=== PATIENT | male | born 1990 | race Caucasian/White ===

== ENCOUNTER 2019-05-30 16:27 | Emergency (ER) | payer SELFPAY ==
[~2019-05-30] VITALS: Ht 167.6 cm; Wt 87.3 kg
[2019-05-30 16:33] VITALS: BP 154/103
[2019-05-30] MEDS ORDERED: KETOROLAC 30 MG/ML VIAL IM ONE (17:10)
[2019-05-30 18:03] VITALS: BP 132/95
== END 2019-05-30 19:03 | disposition home or self-care (01) ==
LOC: MED 16:27
DX: S39.012A Strain of muscle, fascia and tendon of lower back, initial encounter (principal); X58.XXXA Exposure to other specified factors, initial encounter; Y93.89 Activity, other specified; Y92.89 Other specified places as the place of occurrence of the external cause; Y99.8 Other external cause status
CPT/HCPCS: 72100; 81002; 96372; 99283; J1885

== ENCOUNTER 2019-10-19 04:54 | Emergency (ER) | payer MEDICAID ==
[~2019-10-19] VITALS: Ht 175.3 cm; Wt 79.4 kg
--- NOTE | 2019-10-19 04:55 | NUR ---
BIBA BLS TO ER BED 9
[2019-10-19 04:59] VITALS: BP 111/82
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
--- NOTE | 2019-10-19 05:12 | NUR ---
DR ACHARYA AT BEDSIDE
[2019-10-19] MEDS ORDERED: IBUPROFEN 800 MG TAB PO ONE (05:15)
--- NOTE | 2019-10-19 05:41 | NUR ---
XR AT BEDSIDE.
[2019-10-19 06:20] VITALS: BP 111/82
== END 2019-10-19 06:20 | disposition home or self-care (01) ==
LOC: MED 04:54
DX: S80.212A Abrasion, left knee, initial encounter (principal); S80.211A Abrasion, right knee, initial encounter; V49.69XA Unspecified car occupant injured in collision with other motor vehicles in traffic accident, initial encounter; Y93.89 Activity, other specified; Y92.89 Other specified places as the place of occurrence of the external cause; Y99.8 Other external cause status
CPT/HCPCS: 73564; 99283; Q0092

== ENCOUNTER 2020-06-20 01:10 | Emergency (ER) | payer MEDICAID ==
[~2020-06-20] VITALS: Ht 167.6 cm; Wt 81.6 kg
[2020-06-20 01:18] VITALS: BP 153/108
--- NOTE | 2020-06-20 01:21 | NUR ---
PT TAKEN TO BED 9
--- NOTE | 2020-06-20 01:40 | NUR ---
29 YO M BIB SELF WITH C/C OF 8/10 BODY ACHES AND TIGHTNESS IN HIS CHEST THAT IS NONRAD, AND PRODUCTIVE COUGH (GREEN MUSCUS) SINCE WEDNESDAY. DENIED TAKING MEDICATION FOR PAIN RELIEF. PT IS CLAMMY AND APPEARS TO BE SWEATING. LUNG SOUNDS CLEAR BILAT. PT PRESENTS WITH A HR AT 144 AND AFEBRILE. DENIES N/V/D AND CONTACT WITH COVID POS PTS. PT STATES HE NEEDS A NEG COVID TEST TO RETURN BACK TO WORK. DENIES TAKING COVID TEST IN PAST. 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 BED LOCKED IN LOWEST POSITION. SIDE RAIL X1. HX: DENIED RX: DENIED NKA
--- NOTE | 2020-06-20 01:45 | NUR ---
Dr. Felder examining patient.
--- NOTE | 2020-06-20 01:48 | NUR ---
LABS, MARGARET SWAB, INFLUENZA SWAB TAKEN TO LAB.
[2020-06-20] MEDS ORDERED: ACETAMINOPHEN EXTRA STRENGTH 500 MG TAB PO ONE (01:55)
[2020-06-20] MEDS ORDERED: NACL 0.9% 1,000 ML IV ONE ×2 (01:55→02:40)
--- NOTE | 2020-06-20 01:56 | NUR ---
X-Ray at bedside.
[2020-06-20 01:58] LABS: BASOPHILS # (AUTO) 0.1 K/uL (0.00-0.22); BASOPHILS % (AUTO) 0.8 % (0.0-2.0); EOSINOPHILS # (AUTO) 0.1 K/uL (0-0.4); EOSINOPHILS % (AUTO) 1.3 % (0.0-4.0); HEMATOCRIT 45.5 % (36-52); HEMOGLOBIN 15.5 g/dL (12.0-18.0); LYMPHOCYTES # (AUTO) 1.4 K/uL (2.0-11.5); LYMPHOCYTES % (AUTO) 17.4 % (20.5-51.1); MEAN CORPUSCULAR HEMOGLOBIN 30 pg (27-31); MEAN CORPUSCULAR HGB CONC 34 g/dL (33-37); MEAN CORPUSCULAR VOLUME 87.2 fL (80-94); MONOCYTES # (AUTO) 0.5 K/uL (0.8-1.0); MONOCYTES % (AUTO) 5.8 % (1.7-9.3); NEUTROPHILS # (AUTO) 6.2 K/uL (1.8-7.7); NEUTROPHILS % (AUTO) 74.7 % (42.2-75.2); PLATELET COUNT (AUTO) 305 K/uL (140-450); RED BLOOD CELL COUNT(AUTO) 5.22 MIL/uL (4.20-6.10); RED CELL DISTRIBUTION WIDTH 13.1 % (11.6-13.7); WHITE BLOOD COUNT (AUTO) 8.3 K/uL (4.8-10.8)
--- NOTE | 2020-06-20 02:09 | NUR ---
EMT AT BEDSIDE DOING EKG.
[2020-06-20 02:21] LABS: ALBUMIN 3.6 g/dL (3.4-5.0); ANION GAP 10.2 (8-16); CARBON DIOXIDE 29.3 mmol/L (21-32); CREATININE 0.9 mg/dL (0.6-1.3); POTASSIUM 4.5 mmol/L (3.5-5.1); THYROID STIMULATING HORMONE 2.29 uIU/mL (0.34-3.74); TOTAL BILIRUBIN 0.2 mg/dL (0.0-1.0)
--- NOTE | 2020-06-20 02:25 | NUR ---
PT ENCOURAGED TO URINATE FOR UA.
--- NOTE | 2020-06-20 02:31 | NUR ---
UA DROPPED OFF AT LAB.
--- NOTE | 2020-06-20 02:45 | NUR ---
PT RESTING IN BED. EQUAL RISE AND FALL OF CHEST WALL. BED LOCKED IN LOWEST POSITION. 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 SIDE RAILS X1.
[2020-06-20 02:55] LABS: BARBITURATE, URINE NEGATIVE ng/ml (NEG <=200); BENZODIAZEPINE, URINE NEGATIVE ng/mL (NEG <=200); CANNABINOID, URINE NEGATIVE ng/mL (NEG <=50); COCAINE, URINE POSITIVE ng/mL (NEG <=300); OPIATE, URINE NEGATIVE ng/mL (NEG <=2000); PHENCYCLIDINE SCREEN,URINE NEGATIVE ng/mL (NEG <=25)
[2020-06-20 03:30] VITALS: BP 142/102
--- NOTE | 2020-06-20 03:30 | NUR ---
Patient discharged with v/s stable. Written and verbal after care instructions given and explained. Patient alert, oriented and verbalized understanding of instructions. Ambulatory with steady gait. All questions addressed prior to discharge. ID band removed. Patient advised to follow up with PMD. Rx of AMOICILLIN AND FLONASE given. Patient educated on indication of medication including possible reaction and side effects. Opportunity to ask questions provided and answered.
== END 2020-06-20 03:30 | disposition home or self-care (01) ==
LOC: MED 01:10
DX: J06.9 Acute upper respiratory infection, unspecified (principal); R00.0 Tachycardia, unspecified
CPT/HCPCS: 36415; 71045; 80053; 80305; 84443; 84484; 85025; 87426; 87804; 93005; 96360; 96361; 99285; J7030; Q0092